=== PATIENT | female | born 1965 | race Caucasian/White ===

== ENCOUNTER 2019-04-28 13:10 | Inpatient (IN) ==
[2019-04-28] MEDS ORDERED: M.V.I.-12 10 ML, FOLIC ACID 1 MG, MAGNESIUM SULFATE 1 GM, THIAMINE 100 MG in NS 1,000 ML IV ONE (13:42)
--- NOTE | 2019-04-28 13:53 | EKG Report ---
Test Performed on : 04/28/2019 1:46:31 PM Test Reason : tachycardic intoxicated htn Blood Pressure : / mmHG Vent. Rate : 124 BPM Atrial Rate : 124 BPM P-R Int : 134 ms QRS Dur : 092 ms QT Int : 322 ms P-R-T Axes : 040 025 023 degrees QTc Int : 462 ms Sinus tachycardia. Possible Left atrial enlargement Incomplete right bundle branch block Borderline ECG When compared with ECG of 06-APR-2017 14:41, No significant change was found Unconfirmed Result
[2019-04-28 14:15] LABS: BASO# 0.09 X1000 (0.0-0.2); BASO% 1.4 % (0.0-0.8); EOS% 1.6 % (0.0-10.0); HEMATOCRIT 46.5 % (37.0-47.0); IMM GRAN# 0.01 X1000 (0.0-0.04); IMM GRAN% 0.2 % (0.0-0.5); LYMPH# 2.52 X1000 (1.2-3.4); LYMPH% 39.6 % (20.5-51.1); MCH 31.7 PG (27-31); MCHC 34.4 g/dL (33-37); MCV 92.3 FL (81-99); MONO# 0.43 X1000 (0.11-0.59); MONO% 6.8 % (1.7-9.3); MPV 9.5 FL (7.4-10.4); NEUT# 3.21 X1000 (1.4-6.5); NEUT% 50.4 % (42.2-75.2); PLT 338 X1000 (130-400); RBC 5.04 XMIL (4.2-5.4); RDW 14.8 % (11.5-14.5); WBC 6.36 X1000 (4.8-10.8)
[2019-04-28 14:38] LABS: AGAP 18; ALBUMIN 4.5 g/dL (3.5-5.0); ALKALINE PHOSPHATASE 63 U/L (32-104); BUN 16 mg/dL (8-22); CALCIUM 8.9 mg/dL (8.8-10.2); CHLORIDE 99 mmol/L (98-107); COSMO 287; CREATININE 0.6 mg/dL (0.5-0.9); ESTIMATED GFR > 60; GLUCOSE 108 mg/dL (70-104); GOT 86 U/L (10-30); GPT 41 U/L (10-36); LIPASE 43 U/L (13-60); POTASSIUM 4.1 mmol/L (3.5-5.1); SODIUM 143 mmol/L (136-145); TCO2 27 mmol/L (25-35); TOTAL PROTEIN 8.6 g/dL (6.3-8.3)
[2019-04-28 15:10] LABS: UR AMPHETAMINES QUAL NONE DETECTED (NONE DETECT); UR BARBITUATES QUAL NONE DETECTED (NONE DETECT); UR BENZODIAZEPIN QUAL NONE DETECTED (NONE DETECT); UR CANNABINOIDS QUAL NONE DETECTED (NONE DETECT); UR COCAINE QUAL NONE DETECTED (NONE DETECT); UR METHADONE QUAL NONE DETECTED (NONE DETECT); UR METHAMPHETAMINE QUAL NONE DETECTED (NONE DETECT); UR OPIATES QUAL NONE DETECTED (NONE DETECT); UR OXYCODONE QUAL NONE DETECTED (NONE DETECT); UR PCP QUAL NONE DETECTED (NONE DETECT); UR PROPOXYPHENE QUAL NONE DETECTED (NONE DETECT); UR TCA QUAL NONE DETECTED (NONE DETECT)
[2019-04-28 15:17] LABS: URINE SOURCE CLEAN CATCH
[2019-04-28 15:19] LABS: BILIRUBIN URINE NEGATIVE (NEGATIVE); BLOOD URINE NEGATIVE (NEGATIVE); CLARITY CLEAR (CLEAR); COLOR YELLOW; GLUCOSE URINE NEGATIVE (NEGATIVE); KETONE URINE NEGATIVE (NEGATIVE); LEUKOCYTES URINE TRACE (NEGATIVE); NITRITE URINE NEGATIVE (NEGATIVE); PH URINE 6.5; PROTEIN URINE TRACE mg/dL (NEGATIVE); UROBILINOGEN URINE NORMAL
[2019-04-28 15:25] LABS: URINE BACTERIA 1+ /HFP; URINE CAST NONE SEEN /LPF; URINE CRYSTAL NONE SEEN /HPF; URINE EPITHELIAL CELLS >10 /HPF (<10); URINE RBC <10 /HPF (<10); URINE WBC <10 /HPF (<10); URINE YEAST NONE SEEN /HPF
--- NOTE | 2019-04-28 15:32 | PROVIDER DOCUMENTATION ---
This chart was entered by Michelle Vaughan Scribe, acting as scribe for Ilan Maldonado MD. [id number] Abuse/Overdose - General Chief Complaint: Intoxicated Stated Complaint: MIXED ALCOHOL WITH MEDS Time Seen by Provider: 04/28/19 13:39 Source: patient, family Allergies/Adverse Reactions: Allergies Allergy/AdvReac Type Severity Reaction Status Date / Time naproxen [From Naprosyn] Allergy ITCHING Verified 02/09/15 12:40 piroxicam [From Feldene] Allergy ITCHING Verified 02/09/15 12:40 promethazine [From Phenergan] AdvReac Unknown Verified 04/06/18 04:41 Home Medications: Home Medication List Medication Instructions Recorded Confirmed Last Taken Type Clonidine [Catapres] 0.1 mg PO BID 02/09/15 04/28/19 04/06/17 History Trazodone [Desyrel] 50 - 100 mg PO TID 02/09/15 12/30/16 04/06/17 History Irbesartan [Avapro] 2 tab PO DAILY 04/06/18 04/28/19 Unknown History Bupropion HCl [Bupropion Xl] 300 mg PO DAILY 04/28/19 04/28/19 Unknown History Sertraline HCl [Zoloft] 150 mg PO DAILY 04/28/19 04/28/19 Unknown History - History of Present Illness-Drug/Alcohol Nature of Presenting Problem: 53 yowf presents to the ed with family. pt sts has been an recovering alcoholic for 13 years then 7 years ago she broke her leg then started taking pain medication and when that ran out she went back to daily drinking. pt sts drinks vodka daily. pt is intoxicated on exam This episode of drinking or use began:: other (7 years daily alcohol) Severity: reports: moderate Situational problems related to:: reports: other (etoh) Psychiatric Complaints: reports: impaired concentration. denies: hallucinating, paranoid, suicidal ideation Associated Symptoms: reports: trouble walking (etoh). denies: back/neck pain, chest pain, diarrhea, fever/chills, nausea, shortness of breath, vomiting Any injuries associated with this episode of intoxication?: No Similar Symptoms Previously?: Yes Review of Systems - Adult - REVIEW OF SYSTEMS - ADULT ROS:: ROS per family (mother and step sister) Constitutional: denies: chills, fever Eyes: reports: no symptoms reported Ears, Nose, Mouth & Throat: reports: no symptoms reported Cardiovascular: denies: chest pain, palpitations Respiratory: denies: shortness of breath, wheezing Gastrointestinal: denies: diarrhea, nausea, vomiting Genitourinary: reports: no symptoms reported Musculoskeletal: denies: back pain, neck pain Integumentary: reports: no symptoms reported Neurological: reports: see HPI, slurred speech (etoh). denies: dizziness/vertigo, headache/migraines, seizure Psychiatric: reports: see HPI, alcohol/drug dependence. denies: suicidal thoughts Endocrine: reports: no symptoms reported Hematologic/Lymphatic: reports: no symptoms reported Allergic/Immunologic: reports: no symptoms reported All Other Systems: Reviewed and Negative Past History - Adult - PAST MEDICAL HISTORY-ADULT Review of Records: reports: Nursing Assessment Review, Medications Reviewed Major Childhood Illnesses: reports: denies history Cardiovascular: reports: HTN Respiratory: reports: denies history Gastrointestinal: reports: denies history Obstetrical/Gynecological: reports: denies history Genitourinary: reports: denies history Musculoskeletal: reports: denies history Hand Dominance: Right Handed Neurological: reports: denies history Psychiatric: reports: anxiety, depression Endocrine/Immune: reports: denies history Other Conditions: reports: denies history - PRIOR SURGERIES/PROCEDURES Surgical/Procedure History: reports: hysterectomy - PRIOR HOSPITALIZATIONS Prior Hospitalizations: reports: for other non-related - IMMUNIZATION STATUS Childhood Immunizations: See Nurse Assessment Flu Vaccine: See Nurse Assessment - FAMILY HISTORY Family History: reviewed, not pertinent - SOCIAL HISTORY Smoking: denies Substance Use: alcohol Alcohol Use Frequency: every day Number of drinks per typical drinking period:: 5-10 drinks Living Situation: alone Physical Exam-General - PHYSICAL EXAM-ADULT Initial Vital Signs Reviewed: Yes - CONSTITUTIONAL General Appearance: alert, mild distress, obese - EYES Eyes: PERRL/EOMI, pink conjunctivae - HEAD, EARS, NOSE, MOUTH & THROAT HENMT: moist mucous membranes - NECK Neck: full range of motion, supple, normal inspection - RESPIRATORY Respiratory: chest non-tender, lungs clear, normal breath sounds - CARDIOVASCULAR Cardiovascular: normal peripheral pulses, tachycardia (128) - GASTROINTESTINAL (ABDOMEN) Abdominal Exam: normal bowel sounds, soft, distended. negative: guarding, rigid, rebound, tenderness - LYMPHATIC Lymphatic: no adenopathy - MUSCULOSKELETAL Back Exam: normal inspection, no CVA tenderness, no vertebral tenderness Extremity: non-tender, normal inspection, no pedal edema, no calf tenderness, normal capillary refill. negative: normal gait (etoh) - SKIN Integumentary: normal color, normal turgor, warm/dry - PSYCHIATRIC Psych/Mental Status: disheveled, other (intoxicated) Progress - PLAN OF CARE/RESULTS Progress/Plan/Lab Results: Vital Signs - 8 hr 04/28/19 13:29 Temperature 98 F Pulse Rate 128 H Respiratory Rate 18 Blood Pressure 159/116 O2 Sat by Pulse Oximetry 95 Laboratory Results - last 24 hr 04/28/19 04/28/19 04/28/19 14:03 14:03 14:03 WBC 6.36 RBC 5.04 Hgb 16.0 Hct 46.5 MCV 92.3 MCH 31.7 H MCHC 34.4 RDW Std Deviation 14.8 H Plt Count 338 MPV 9.5 Immature Gran % (Auto) 0.2 Neut % (Auto) 50.4 Lymph % (Auto) 39.6 [place] % (Auto) 6.8 Eos % (Auto) 1.6 Baso % (Auto) 1.4 H Immature Gran # (Auto) 0.01 Neut # (Auto) 3.21 Lymph # (Auto) 2.52 [place] # (Auto) 0.43 Eos # (Auto) 0.10 Baso # (Auto) 0.09 Sodium Potassium Chloride Carbon Dioxide Anion Gap BUN Creatinine Estimated GFR/1.73 m2 BUN/Creatinine Ratio Glucose Calculated Osmolality Calcium Total Bilirubin AST ALT Alkaline Phosphatase Total Protein Albumin Globulin Albumin/Globulin Ratio Amylase 81 Lipase Urine Source Urine Color Urine Clarity Urine pH Ur Specific [place] Urine Protein Urine Ketones Urine Blood Urine Nitrite Urine Bilirubin Urine Urobilinogen Urine Microscopic RBC Urine WBC Urine Microscopic WBC Ur Epithelial Cells Urine Crystals Urine Bacteria Urine Casts Urine Yeast Urine Glucose Urine Opiates Screen Ur Oxycodone Screen Urine Methadone Screen U Propoxyphene Qual Ur Barbituates Screen Ur Tricyclics Screen Ur Phencyclidine Scrn Ur Amphetamines Screen U Methamphetamines Scrn U Benzodiazepines Scrn Urine Cocaine Screen U Cannabinoids Screen Plasma/Serum Ethyl Alc 04/28/19 04/28/19 04/28/19 14:03 14:30 14:36 WBC RBC Hgb Hct MCV MCH MCHC RDW Std Deviation Plt Count MPV Immature Gran % (Auto) Neut % (Auto) Lymph % (Auto) [place] % (Auto) Eos % (Auto) Baso % (Auto) Immature Gran # (Auto) Neut # (Auto) Lymph # (Auto) [place] # (Auto) Eos # (Auto) Baso # (Auto) Sodium 143 Potassium 4.1 Chloride 99 Carbon Dioxide 27 Anion Gap 18 BUN 16 Creatinine 0.6 Estimated GFR/1.73 m2 > 60 BUN/Creatinine Ratio 27 Glucose 108 H Calculated Osmolality 287 Calcium 8.9 Total Bilirubin 0.20 AST 86 H ALT 41 H Alkaline Phosphatase 63 Total Protein 8.6 H Albumin 4.5 Globulin 4.0 Albumin/Globulin Ratio 1.0 Amylase Lipase 43 Urine Source CLEAN CATCH Urine Color YELLOW Urine Clarity CLEAR Urine pH 6.5 Ur Specific [place] 1.010 Urine Protein TRACE A Urine Ketones NEGATIVE Urine Blood NEGATIVE Urine Nitrite NEGATIVE Urine Bilirubin NEGATIVE Urine Urobilinogen NORMAL Urine Microscopic RBC <10 Urine WBC TRACE A Urine Microscopic WBC <10 Ur Epithelial Cells >10 A Urine Crystals NONE SEEN Urine Bacteria 1+ Urine Casts NONE SEEN Urine Yeast NONE SEEN Urine Glucose NEGATIVE Urine Opiates Screen NONE DETECTED Ur Oxycodone Screen NONE DETECTED Urine Methadone Screen NONE DETECTED U Propoxyphene Qual NONE DETECTED Ur Barbituates Screen NONE DETECTED Ur Tricyclics Screen NONE DETECTED Ur Phencyclidine Scrn NONE DETECTED Ur Amphetamines Screen NONE DETECTED U Methamphetamines Scrn NONE DETECTED U Benzodiazepines Scrn NONE DETECTED Urine Cocaine Screen NONE DETECTED U Cannabinoids Screen NONE DETECTED Plasma/Serum Ethyl Alc Orders Category Date Time Status Nursing- Obtain EKG ONCE Care 04/28/19 13:35 Active ALCOHOL BLOOD Stat Lab 04/28/19 14:03 Completed AMYLASE [CHEM] Stat Lab 04/28/19 14:03 Completed CBC WITH DIFF [HEME] Stat Lab 04/28/19 14:03 Completed COMPREHENSIVE METABOLIC PANEL [CHEM] Stat Lab 04/28/19 14:03 Completed LIPASE [CHEM] Stat Lab 04/28/19 14:[address] W/POSS RFLX CULT [URINALYSIS] Stat Lab 04/28/19 14:36 Completed URINE CULTURE [RM] Routine Lab 04/28/19 15:25 [address]UG S[address]EN [address] Stat Lab 04/28/19 14:30 Completed Mvi [M.v.i.-12] 10 ml Med 04/28/19 13:42 Discontinued Folic Acid 1 mg Magnesium Sulfate 1 gm Thiamine 100 mg 0.9% Sodium Chloride Inj [Ns] 1,000 ml IV NOW EKG [EKG] Stat Ther 04/28/19 13:35 Draft Result Diagrams: 04/28/19 14:03 04/28/19 14:03 - EKG 1 Time of EKG reading by physician:: 13:46 EKG Read and Signed by:: Ilan Maldonado EKG Interpretation (*Must complete 3 of following elements*): Normal (borderline) Rate: 124 Rhythm: sinus tachycardia [place]: normal QRS: RBB ME Interval: normal ST Wave: normal Comments: possible left atrial enlargement - CONSULTS/PCP/HOSPITALIST Notification #1 *Consult/PCP/Hospitalist*: Dr Fagan Time Discussed: 15:32 Consult Disposition: Admit Departure - Departure Date of Disposition Decision: 04/28/19 Time of Disposition Decision: 15:31 DIAGNOSIS: Alcoholism Disposition: ADMITTED INPATIENT 09 Certified Medical Emergency: Emergent Condition: Stable Referrals and Follow-Ups: Charanjit Herman MD [Primary Care Provider] - - Critical Care Note This patient required my direct & personal management of CC.: No Attestation - Physician/ SEDRICK Attestation Patient care was provided by Advanced Practice Provider:: No The physician spent face to face time with patient:: Yes Advanced Practice Provider documentation review:: Supervising physician onsite and consulted in the evaluation and care of this patient. The physician did have a face to face encounter with the patient. This chart was documented by the indicated scribe, (Michelle Vaughan Scribe) and accurately reflects the services I performed and decisions made by me, Ilan Maldonado MD, as attested by the provider's signature.
[2019-04-28] MEDS ORDERED: D5W 1,000 ML IV PRN (15:49)
[2019-04-28] MEDS ORDERED: ATARAX PO PRN (15:49)
[2019-04-28] MEDS ORDERED: ROBAXIN PO PRN (15:49)
[2019-04-28] MEDS ORDERED: ZOFRAN IV PRN (15:49)
[2019-04-28] MEDS ORDERED: BENTYL PO PRN (15:49)
[2019-04-28] MEDS ORDERED: SENOKOT PO PRN (15:49)
[2019-04-28] MEDS ORDERED: ZOFRAN ODT PO PRN (15:49)
[2019-04-28] MEDS ORDERED: PHENOBARBITAL IV PRN (15:49)
[2019-04-28] MEDS ORDERED: IMODIUM PO PRN (15:49)
[2019-04-28] MEDS ORDERED: DULCOLAX PR PRN (15:49)
[2019-04-28] MEDS ORDERED: DESYREL PO PRN (15:49)
[2019-04-28] MEDS ORDERED: MAALOX PLUS LIQUID PO PRN (15:49)
[2019-04-28] MEDS ORDERED: TYLENOL PO PRN (15:49)
[2019-04-28] MEDS ORDERED: NICODERM PATCH TD PRN (15:49)
[2019-04-28 16:59] LABS: HEMATOCRIT 41.4 % (37.0-47.0); HEMOGLOBIN 14.2 g/dL (12.0-16.0); MCH 31.8 PG (27-31); MCHC 34.3 g/dL (33-37); MCV 92.8 FL (81-99); MPV 9.4 FL (7.4-10.4); RBC 4.46 XMIL (4.2-5.4); RDW 14.7 % (11.5-14.5); WBC 6.93 X1000 (4.8-10.8)
[2019-04-28] MEDS ORDERED: TUBERSOL ID ONE (17:00)
[2019-04-28] MEDS ORDERED: LIBRIUM PO SCH (17:00)
[2019-04-28 17:05] LABS: INR 0.86; PROTIME 12.2 Seconds (11.0-16.0)
[2019-04-28 17:10] LABS: AGAP 17; ALBUMIN 3.9 g/dL (3.5-5.0); ALKALINE PHOSPHATASE 53 U/L (32-104); BUN 14 mg/dL (8-22); CHLORIDE 101 mmol/L (98-107); COSMO 285; CREATININE 0.5 mg/dL (0.5-0.9); ESTIMATED GFR > 60; GLUCOSE 94 mg/dL (70-104); GOT 69 U/L (10-30); GPT 33 U/L (10-36); LIPASE 35 U/L (13-60); POTASSIUM 4.1 mmol/L (3.5-5.1); SODIUM 143 mmol/L (136-145); TCO2 25 mmol/L (25-35); TOTAL PROTEIN 7.2 g/dL (6.3-8.3)
[2019-04-28 19:03] LABS: URINE SOURCE CLEAN CATCH
[2019-04-28 19:10] LABS: BILIRUBIN URINE NEGATIVE (NEGATIVE); BLOOD URINE NEGATIVE (NEGATIVE); CLARITY CLEAR (CLEAR); COLOR YELLOW; GLUCOSE URINE NEGATIVE (NEGATIVE); KETONE URINE TRACE mg/dL (NEGATIVE); LEUKOCYTES URINE 1+ (NEGATIVE); NITRITE URINE NEGATIVE (NEGATIVE); PH URINE 6.5; PROTEIN URINE TRACE mg/dL (NEGATIVE); SP GRAVITY URINE 1.015; UROBILINOGEN URINE NORMAL
[2019-04-28 19:16] LABS: URINE BACTERIA 1+ /HFP; URINE CAST NONE SEEN /LPF; URINE CRYSTAL NONE SEEN /HPF; URINE EPITHELIAL CELLS >10 /HPF (<10); URINE RBC <10 /HPF (<10); URINE YEAST NONE SEEN /HPF
[2019-04-28 19:24] LABS: UR AMPHETAMINES QUAL NONE DETECTED (NONE DETECT); UR BARBITUATES QUAL NONE DETECTED (NONE DETECT); UR BENZODIAZEPIN QUAL NONE DETECTED (NONE DETECT); UR CANNABINOIDS QUAL NONE DETECTED (NONE DETECT); UR COCAINE QUAL NONE DETECTED (NONE DETECT); UR METHADONE QUAL NONE DETECTED (NONE DETECT); UR METHAMPHETAMINE QUAL NONE DETECTED (NONE DETECT); UR OPIATES QUAL NONE DETECTED (NONE DETECT); UR OXYCODONE QUAL NONE DETECTED (NONE DETECT); UR PCP QUAL NONE DETECTED (NONE DETECT); UR PROPOXYPHENE QUAL NONE DETECTED (NONE DETECT); UR TCA QUAL NONE DETECTED (NONE DETECT)
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
[2019-04-28] MEDS: MOTRIN PO PRN (21:09)
[2019-04-28] MEDS: CATAPRES PO SCH (21:44)
[2019-04-28] MEDS: SEROQUEL PO PRN (21:48)
[2019-04-29] MEDS: LIBRIUM PO SCH ×5 (00:02→23:26)
[2019-04-29] MEDS: APRESOLINE IV PRN ×2 (04:50→11:32)
[2019-04-29] MEDS: PROTONIX PO SCH (06:01)
[2019-04-29] MEDS: AVAPRO PO SCH (09:30)
[2019-04-29] MEDS: MOTRIN PO PRN (09:30)
[2019-04-29] MEDS: THERA M PLUS PO SCH (09:30)
[2019-04-29] MEDS: FOLIC ACID PO SCH (09:30)
[2019-04-29] MEDS: ZOLOFT PO SCH (09:30)
[2019-04-29] MEDS: VITAMIN B-1 PO SCH (09:30)
[2019-04-29] MEDS: CATAPRES PO SCH ×2 (09:30→21:04)
--- NOTE | 2019-04-30 00:04 | PROGRESS NOTE ---
DATE: 04/29/2019 SUBJECTIVE: Patient notes that overall she is feeling tremendously better. Her tremors are improved. Denies any myalgias. Denies nausea, vomiting. PHYSICAL EXAMINATION: Vital Signs: Reviewed. Temperature 98 degrees, pulse 92, respiratory 20, BP 164/95 to 120/72. General: Patient is awake, alert, very pleasant. She is in no distress. HEENT: Normocephalic. Neck: Supple. Cardiovascular: Regular rate. Chest: Clear. Abdomen: Soft. Extremities: Moves all extremities. ASSESSMENT: 1. Nausea, vomiting. 2. Abdominal pain. 3. Myalgias. 4. Paresthesias. 5. Paroxysmal sweating. 6. Alcohol abuse, withdrawal and stabilization. 7. Tremors, resolved. PLAN: We will continue patient in the hospital. Continue to wean Librium as tolerated. Continue counseling. Further orders as needed. Discussed with patient the use of naltrexone on discharge. cc: Mario Fagan MD
[2019-04-30] MEDS: LIBRIUM PO SCH ×3 (06:03→17:27)
[2019-04-30] MEDS: PROTONIX PO SCH (06:03)
[2019-04-30] MEDS: FOLIC ACID PO SCH (09:09)
[2019-04-30] MEDS: CATAPRES PO SCH ×2 (09:09→20:52)
[2019-04-30] MEDS: THERA M PLUS PO SCH (09:09)
[2019-04-30] MEDS: ZOLOFT PO SCH (09:09)
[2019-04-30] MEDS: AVAPRO PO SCH (09:09)
[2019-04-30] MEDS: VITAMIN B-1 PO SCH (09:09)
--- NOTE | 2019-04-30 16:21 | PROGRESS NOTE ---
DATE: 04/30/2019 SUBJECTIVE: Patient notes that she is feeling tremendously better today. Denies any fevers, chills, denies tremors. Denies any nausea. PHYSICAL EXAMINATION: Vital Signs: Reviewed. Patient is awake, alert. She is in no distress. Blood pressure is stable. She is afebrile. Heart rate 80s. General: Patient is very pleasant. HEENT: Normocephalic. Neck: Supple. Cardiovascular: Regular rate. Chest: Clear. Abdomen: Soft. Extremities: Moves all extremities. ASSESSMENT: 1. Nausea, vomiting. 2. Abdominal pain. 3. Myalgias. 4. Tremors. 5. Alcohol abuse withdrawal, admit for stabilization. PLAN: Overall, patient has continued to improve. We will continue to wean Librium. Hopefully, she can discharge home tomorrow. cc: Mario Fagan MD
[2019-04-30] MEDS: SEROQUEL PO PRN (20:58)
[2019-05-01] MEDS: LIBRIUM PO SCH ×2 (00:17→06:14)
[2019-05-01] MEDS: MOTRIN PO PRN (00:19)
[2019-05-01] MEDS: PROTONIX PO SCH (06:14)
[2019-05-01 07:43] VITALS: BP 112/70
[2019-05-01] MEDS ORDERED: LIBRIUM PO SCH ×2 (09:00)
[2019-05-01] MEDS: THERA M PLUS PO SCH (09:49)
[2019-05-01] MEDS: VITAMIN B-1 PO SCH (09:49)
[2019-05-01] MEDS: CATAPRES PO SCH ×2 (09:50→09:53)
[2019-05-01] MEDS: FOLIC ACID PO SCH (09:50)
[2019-05-01] MEDS: AVAPRO PO SCH (09:50)
[2019-05-01] MEDS: ZOLOFT PO SCH (09:50)
--- NOTE | 2019-05-01 20:02 | DISCHARGE SUMMARY ---
ADMISSION DATE: 04/28/2019 DISCHARGE DATE: 05/01/2019 DISCHARGE DIAGNOSES: 1. Nausea and vomiting. 2. Abdominal pain. 3. Myalgias. 4. Paresthesias. 5. Tremors. 6. Paroxysmal sweating. 7. Alcohol abuse withdrawal and stabilization. 8. Hypertension. CONSULTATIONS: None. PROCEDURES: None. BRIEF HOSPITAL COURSE: The patient is a 53-year-old female who presented to [facility] secondary to nausea, vomiting, abdominal pain, tremors and myalgias. Her blood pressures were noted to be markedly elevated. She apparently has not been taking her blood pressure medications at home because she does not have insurance. We admitted her to the hospital, treated her in the usual fashion for alcohol withdrawal. She thankfully had an uneventful hospital course. We continued to wean her Librium without any incident. DISPOSITION: The patient will be discharged home. I discussed with her the use of Librium for the next 3-4 days at home as well as the use of naltrexone 50 mg daily for alcohol prevention. We did call in prescription for her for losartan 50 mg and clonidine 0.1 mg twice daily. Greater than 30 minutes was spent in total discharge care and planning. Discussed with patient that she needs to avoid all persons, places and situations in which she has been using and abusing in the past. She needs outpatient life counseling as well as drug counseling. cc: Mario Fagan MD
== END 2019-05-01 11:20 | disposition home or self-care (01) | DRG 897 ==
LOC: P.ED 13:10 → P.MEDSURG 16:38
PROVIDERS: ADMIT Family Medicine; ATTEND Family Medicine
CPT/HCPCS: 80053; 80104; 80301; 80305; 80307; 80320; 81001; 82055; 82150; 83690; 85025; 85027; 85610; 86580; 87088; 93005; 96365; 96366; 99284; A9270; G0431; G0434; G0477; G0480; G6040; J0360